=== PATIENT | female | born 1985 | race Native Hawaiian/Other Pacific Islander ===

== ENCOUNTER 2020-12-20 09:56 | Emergency (ER) | payer OTHER ==
[~2020-12-20] VITALS: Ht 154.9 cm; Wt 104.8 kg
[2020-12-20 11:20] VITALS: BP 115/82; TEMP 99
== END 2020-12-20 11:20 | disposition home or self-care (01) ==
LOC: ED 09:56
DX: T18.128A Food in esophagus causing other injury, initial encounter (principal); X58.XXXA Exposure to other specified factors, initial encounter; Y92.89 Other specified places as the place of occurrence of the external cause
CPT/HCPCS: 96372; 99283; J1610; J2765